=== PATIENT | female | born 1990 | race Caucasian/White ===

== ENCOUNTER 2023-11-28 14:47 | Emergency (ER) | payer OTHER ==
--- NOTE | 2023-11-28 14:54 | ED ---
General Adult HPI - General Source: patient, EMS, RN notes reviewed Mode of arrival: EMS Limitations: no limitations <Abe Velasquez - Last Filed: 11/28/23 14:51> <Renetta Boucher - Last Filed: 11/29/23 00:07> - General Stated complaint: Incoherent Time Seen by Provider: 11/28/23 14:51 - History of Present Illness Initial comments: Quick note 33-year-old female presents emergency department via EMS from [facility] for evaluation. Patient was checked and today in which [facility] staff felt that she was too lethargic and sent here for evaluation. She states that she did use some Xanax today she states she normally uses methamphetamines in which she states she injects. Patient does admit that she may have used recent crack. Patient denies any fevers or chills patient was awake alert and orientated with EMS (Abe Velasquez) 33-year-old female presents to the emergency department via EMS from [facility] for evaluation. Patient states that she checked into [facility] today for rehabilitation for IV drug use. Patient reports that they thought that she was too lethargic and needed further evaluation. She does admit to using methamphetamine this morning and she also took Xanax. Patient states that she feels like this caused her to be fatigued. She states she otherwise feels well. She denies any fever, chills, nausea, vomiting. She does note a bump on the back of her head that has been there for quite some time which is painful for her. She denies any drainage from this. She does not take any daily prescription medications. (Renetta Boucher) - Related Data Previous Rx's Medication Instructions Recorded Sulfamethox-Tmp 800-160Mg [Bactrim 1 each PO Q12HR #20 tab 11/28/23 Ds] Allergies Allergy/AdvReac Type Severity Reaction Status Date / Time No Known Allergies Allergy Verified 11/28/23 17:39 Review of Systems ROS Other: All systems not noted in ROS Statement are negative. <Abe Velasquez - Last Filed: 11/28/23 14:51> ROS Other: All systems not noted in ROS Statement are negative. <Renetta Boucher - Last Filed: 11/29/23 00:07> ROS Statement: Those systems with pertinent positive or pertinent negative responses have been documented in the HPI. General Exam <Abe Velasquez - Last Filed: 11/28/23 14:51> Limitations: no limitations General appearance: alert, in no apparent distress Head exam: Present: atraumatic, normocephalic, normal inspection Eye exam: Present: normal appearance, PERRL, EOMI. Absent: scleral icterus, conjunctival injection, periorbital swelling ENT exam: Present: normal exam, mucous membranes moist Neck exam: Present: normal inspection. Absent: tenderness, meningismus, lymphadenopathy Respiratory exam: Present: normal lung sounds bilaterally. Absent: respiratory distress, wheezes, rales, rhonchi, stridor Cardiovascular Exam: Present: regular rate, normal rhythm, normal heart sounds. Absent: systolic murmur, diastolic murmur, rubs, gallop, clicks Extremities exam: Present: normal inspection, full ROM, normal capillary refill. Absent: tenderness, pedal edema, joint swelling, calf tenderness Neurological exam: Present: alert, oriented X3, CN II-XII intact Psychiatric exam: Present: normal affect, normal mood Skin exam: Present: warm, dry, intact, normal color. Absent: rash <Renetta Boucher - Last Filed: 11/29/23 00:07> - General Exam Comments Initial Comments: Visual Physical Exam Vital signs reviewed General: Well-appearing, nontoxic, no acute distress. Head: Normocephalic, atraumatic Eyes: PERRLA, EOMI ENT: Airway patent Chest: Nonlabored breathing Skin: No visual rash, normal skin tone Neuro: Alert and oriented 3 Musculoskeletal: No gross abnormalities (Abe Velasquez) Course Vital Signs 11/28/23 11/28/23 11/28/23 15:29 18:57 19:50 Temperature 97.2 F L 98.2 F 98 F Pulse Rate 100 91 112 H Respiratory 16 18 18 Rate Blood Pressure 124/79 122/84 113/80 O2 Sat by Pulse 100 99 100 Oximetry Medical Decision Making <Abe Velasquez - Last Filed: 11/28/23 14:51> - Lab Data Result diagrams: 11/28/23 16:36 11/28/23 16:36 <Renetta Boucher - Last Filed: 11/29/23 00:07> - Medical Decision Making I completed the quick note portion of this chart signed Abe Velasquez PA-C (Abe Velasquez) Was pt. sent in by a medical professional or institution (, PA, DIGITAL MEDIA PRODUCER, urgent care, hospital, or fci...) When possible be specific @ -[facility] Did you speak to anyone other than the patient for history (EMS, parent, family, police, friend...)? What history was obtained from this source @ -No Did you review nursing and triage notes (agree or disagree)? Why? @ -I reviewed and agree with nursing and triage notes Were old charts reviewed (outside hosp., previous admission, EMS record, old EKG, old radiological studies, urgent care reports/EKG's, fci records)? Report findings @ -No old charts were reviewed Differential Diagnosis (chest pain, altered mental status, abdominal pain women, abdominal pain men, vaginal bleeding, weakness, fever, dyspnea, syncope, headache, dizziness, GI bleed, back pain, seizure, CVA, palpatations, mental he alth, musculoskeletal)? @ -Differential Altered Mental Status: Hypoglycemia, DKA, hypercapnia, ETOH, overdose, CO poisoning, trauma, myxedema coma, HTN encephalopathy, infection, encephalitis, psychosis, intercranial hemorrhage, hepatic encephalopathy, meningitis, CVA, this is not meant to be an all-inclusive list EKG interpreted by me (3pts min.). @ -None X-rays interpreted by me (1pt min.). @ -None done CT interpreted by me (1pt min.). @ -None done U/S interpreted by me (1pt. min.). @ -None done What testing was considered but not performed or refused? (CT, X-rays, U/S, labs)? Why? @ -None What meds were considered but not given or refused? Why? @ -None Did you discuss the management of the patient with other professionals (professionals i.e. , JERARDO, DIGITAL MEDIA PRODUCER, lab, RT, psych nurse, home health care social worker, metal rivet machine operator, teacher, investment officer, welfare case worker)? Give summary @ -No Was smoking cessation discussed for >3mins.? @ -No Was critical care preformed (if so, how long)? @ -No Were there social determinants of health that impacted care today? How? (Homelessness, low income, unemployed, alcoholism, drug addiction, transportation, low edu. Level, literacy, decrease access to med. care, detention, rehab)? @ -No Was there de-escalation of care discussed even if they declined (Discuss DNR or withdrawal of care, Hospice)? DNR status @ -No What co-morbidities impacted this encounter? (DM, HTN, Smoking, COPD, CAD, Cancer, CVA, ARF, Chemo, Hep., AIDS, mental health diagnosis, sleep apnea, mor bid obesity)? @ -None Was patient admitted / discharged? Hospital course, mention meds given and ro fco, prescriptions, significant lab abnormalities, going to OR and other pertinent info. @ -Discharged. Patient presents to the emergency department, sent in by [facility] for altered mental status. Patient is AOx4, acting appropriately in the room. She denies any significant complaints at this time besides a bump on the back of her head which has been there for 2 to 3 months. Laboratory studies were obtained. CBC unremarkable, CMP shows a potassium of 3.1, replaced with 40 mEq K-Dur, UA shows moderate leukocyte esterase, 13 WBCs, 8 squamous cells she is not having any urinary symptoms at this time. Negative urine hCG; serum alcohol negative; urine drug screen positive for amphetamines, methamphetamines, benzodiazepines, THC. Discussed these findings with patient. She is acting appropriately and I feel she can be discharged back to [facility]. Patient is understanding and agreeable with this. Patient stable at time of discharge. Case discussed with Dr. Morfin Undiagnosed new problem with uncertain prognosis? @ -No Drug Therapy requiring intensive monitoring for toxicity (Heparin, Nitro, Insulin, Cardizem)? @ -No Were any procedures done? @ -No Diagnosis/symptom? @ -IV drug abuse Acute, or Chronic, or Acute on Chronic? @ -chronic Uncomplicated (without systemic symptoms) or Complicated (systemic symptoms)? @ -uncomplicated Side effects of treatment? @ -No Exacerbation, Progression, or Severe Exacerbation? @ -No Poses a threat to life or bodily function? How? (Chest pain, USA, [place], pneumonia, PE, COPD, DKA, ARF, appy, cholecystitis, CVA, Diverticulitis, Homicidal, Suicidal, threat to staff... and all critical care pts) @ -No (Renetta Boucher) - Lab Data Lab Results 0411/28/23 11/28/23 Range/Units 16:36 16:36 17:40 WBC 6.7 (3.8-10.6) k/uL RBC 4.72 (3.80-5.40) m/uL Hgb 13.2 (11.4-16.0) gm/dL Hct 42.0 (34.0-46.0) % MCV 88.9 (80.0-100.0) fL MCH 27.9 (25.0-35.0) pg MCHC 31.4 (31.0-37.0) g/dL RDW 13.6 (11.5-15.5) % Plt Count 303 (150-450) k/uL MPV 7.6 Neutrophils % 63 % Lymphocytes % 29 % Monocytes % 5 % Eosinophils % 1 % Basophils % 1 % Neutrophils # 4.2 (1.3-7.7) k/uL Lymphocytes # 2.0 (1.0-4.8) k/uL Monocytes # 0.3 (0-1.0) k/uL Eosinophils # 0.0 (0-0.7) k/uL Basophils # 0.0 (0-0.2) k/uL Sodium 143 (137-145) mmol/L Potassium 3.1 L (3.5-5.1) mmol/L Chloride 104 (98-107) mmol/L Carbon Dioxide 31 H (22-30) mmol/L Anion Gap 8 mmol/L BUN 9 (7-17) mg/dL Creatinine 0.56 (0.52-1.04) mg/dL Est GFR (CKD-EPI)AfAm >90 (>60 ml/min/1.73 sqM) Est GFR (CKD-EPI)NonAf >90 (>60 ml/min/1.73 sqM) Glucose 86 (74-99) mg/dL Calcium 9.6 (8.4-10.2) mg/dL Total Bilirubin 0.5 (0.2-1.3) mg/dL AST 21 (14-36) U/L ALT 11 (4-34) U/L Alkaline Phosphatase 65 (38-126) U/L Total Protein 7.9 (6.3-8.2) g/dL Albumin 4.6 (3.5-5.0) g/dL Urine Color Light Yellow Urine Appearance Cloudy H (Clear) Urine pH 6.0 (5.0-8.0) Ur Specific [place] 1.011 (1.001-1.035) Urine Protein Negative (Negative) Urine Glucose (UA) Negative (Negative) Urine Ketones Negative (Negative) Urine Blood Negative (Negative) Urine Nitrite Negative (Negative) Urine Bilirubin Negative (Negative) Urine Urobilinogen <2.0 (<2.0) mg/dL Ur Leukocyte Esterase Moderate H (Negative) Urine RBC 1 (0-5) /hpf Urine WBC 13 H (0-5) /hpf Ur Squamous Epith Cells 8 H (0-4) /hpf Urine Mucus Few H (None) /hpf Urine HCG, Qual (Not Detectd) Urine Opiates Screen Not Detected (NotDetected) Ur Oxycodone Screen Not Detected (NotDetected) Urine Methadone Screen Not Detected (NotDetected) Ur Barbiturates Screen Not Detected (NotDetected) U Tricyclic Antidepress Not Detected (NotDetected) Ur Phencyclidine Scrn Not Detected (NotDetected) Ur Amphetamines Screen Detected H (NotDetected) U Methamphetamines Scrn Detected H (NotDetected) U Benzodiazepines Scrn Detected H (NotDetected) Urine Cocaine Screen Not Detected (NotDetected) U Marijuana (THC) Screen Detected H (NotDetected) Serum Alcohol <10 mg/dL 11/28/23 Range/Units 17:40 WBC (3.8-10.6) k/uL RBC (3.80-5.40) m/uL Hgb (11.4-16.0) gm/dL Hct (34.0-46.0) % MCV (80.0-100.0) fL MCH (25.0-35.0) pg MCHC (31.0-37.0) g/dL RDW (11.5-15.5) % Plt Count (150-450) k/uL MPV Neutrophils % % Lymphocytes % % Monocytes % % Eosinophils % % Basophils % % Neutrophils # (1.3-7.7) k/uL Lymphocytes # (1.0-4.8) k/uL Monocytes # (0-1.0) k/uL Eosinophils # (0-0.7) k/uL Basophils # (0-0.2) k/uL Sodium (137-145) mmol/L Potassium (3.5-5.1) mmol/L Chloride (98-107) mmol/L Carbon Dioxide (22-30) mmol/L Anion Gap mmol/L BUN (7-17) mg/dL Creatinine (0.52-1.04) mg/dL Est GFR (CKD-EPI)AfAm (>60 ml/min/1.73 sqM) Est GFR (CKD-EPI)NonAf (>60 ml/min/1.73 sqM) Glucose (74-99) mg/dL Calcium (8.4-10.2) mg/dL Total Bilirubin (0.2-1.3) mg/dL AST (14-36) U/L ALT (4-34) U/L Alkaline Phosphatase (38-126) U/L Total Protein (6.3-8.2) g/dL Albumin (3.5-5.0) g/dL Urine Color Urine Appearance (Clear) Urine pH (5.0-8.0) Ur Specific [place] (1.001-1.035) Urine Protein (Negative) Urine Glucose (UA) (Negative) Urine Ketones (Negative) Urine Blood (Negative) Urine Nitrite (Negative) Urine Bilirubin (Negative) Urine Urobilinogen (<2.0) mg/dL Ur Leukocyte Esterase (Negative) Urine RBC (0-5) /hpf Urine WBC (0-5) /hpf Ur Squamous Epith Cells (0-4) /hpf Urine Mucus (None) /hpf Urine HCG, Qual Not Detected (Not Detectd) Urine Opiates Screen (NotDetected) Ur Oxycodone Screen (NotDetected) Urine Methadone Screen (NotDetected) Ur Barbiturates Screen (NotDetected) U Tricyclic Antidepress (NotDetected) Ur Phencyclidine Scrn (NotDetected) Ur Amphetamines Screen (NotDetected) U Methamphetamines Scrn (NotDetected) U Benzodiazepines Scrn (NotDetected) Urine Cocaine Screen (NotDetected) U Marijuana (THC) Screen (NotDetected) Serum Alcohol mg/dL Disposition <Abe Velasquez - Last Filed: 11/28/23 14:51> Is patient prescribed a controlled substance at d/c from ED?: No <Renetta Boucher - Last Filed: 11/29/23 00:07> Clinical Impression: Hypokalemia, Drug abuse, daily use, Cellulitis Disposition: HOME SELF-CARE Condition: Stable Additional Instructions: Please return to [facility]. Return to the emergency department for new or worsening symptoms. Prescriptions: Sulfamethox-Tmp 800-160Mg [Bactrim Ds] 1 each PO Q12HR #20 tab Referrals: None,Stated [Primary Care Provider] - 1-2 days
[2023-11-28 16:45] LABS: Basophils % (A) 1 %; Eosinophils % (A) 1 %; HGB 13.2 gm/dL (11.4-16.0); Lymphocytes % (A) 29 %; MCH 27.9 pg (25.0-35.0); MCHC 31.4 g/dL (31.0-37.0); MCV 88.9 fL (80.0-100.0); Mean Platelet Volume 7.6; Monocytes # (A) 0.3 k/uL (0-1.0); Monocytes % (A) 5 %; Neutrophils # (A) 4.2 k/uL (1.3-7.7); Neutrophils % (A) 63 %; Platelet Count 303 k/uL (150-450); RBC 4.72 m/uL (3.80-5.40); RDW 13.6 % (11.5-15.5); WBC 6.7 k/uL (3.8-10.6)
[2023-11-28 16:57] LABS: ALT 11 U/L (4-34); AST 21 U/L (14-36); African American GFR (CKD) >90 (>60 ml/min/1.73 sqM); Albumin 4.6 g/dL (3.5-5.0); Alcohol <10 mg/dL; Alkaline Phosphatase 65 U/L (38-126); Anion Gap 8 mmol/L; Blood Urea Nitrogen 9 mg/dL (7-17); Calcium 9.6 mg/dL (8.4-10.2); Carbon Dioxide 31 mmol/L (22-30); Chloride 104 mmol/L (98-107); Glucose 86 mg/dL (74-99); Non-African American GFR(CKD) >90 (>60 ml/min/1.73 sqM); Potassium 3.1 mmol/L (3.5-5.1); Sodium 143 mmol/L (137-145); Total Bilirubin 0.5 mg/dL (0.2-1.3); Total Protein 7.9 g/dL (6.3-8.2)
[2023-11-28] MEDS: POTASSIUM CHLORIDE ER 20 MEQ TAB.ER PO STA (18:27)
[2023-11-28 18:41] LABS: Appearance,Urine Cloudy (Clear); Bilirubin,Urine Negative (Negative); Blood,Urine Negative (Negative); Color,Urine Light Yellow; Glucose,Urine (UA) Negative (Negative); Ketones,Urine Negative (Negative); Leukocyte Esterase,Urine Moderate (Negative); Mucus,Urine Few /hpf; Nitrite,Urine Negative (Negative); Protein,Urine Negative (Negative); RBC,Urine 1 /hpf (0-5); Specific Gravity,Urine 1.011 (1.001-1.035); Squamous Epithelial Cell,Urine 8 /hpf (0-4); Urobilinogen,Urine <2.0 mg/dL (<2.0); WBC,Urine 13 /hpf (0-5)
[2023-11-28 18:49] LABS: Amphetamine Screen,Urine Detected (NotDetected); Barbiturate Screen,Urine Not Detected (NotDetected); Benzodiazepines Screen,Urine Detected (NotDetected); Cocaine Screen,Urine Not Detected (NotDetected); Methadone Screen, Urine Not Detected (NotDetected); Opiate Screen,Urine Not Detected (NotDetected); Oxycodone Screen, Urine Not Detected (NotDetected); Phencyclidine Screen,Urine Not Detected (NotDetected); Tricyclic Antidepressant,Urine Not Detected (NotDetected); Urn Cannabinoid Scrn Detected (NotDetected)
[2023-11-28 19:13] VITALS: RESP 18
[2023-11-28 20:25] VITALS: BP 113/80; PULSE 112; TEMP 98
== END 2023-11-28 20:01 | disposition home or self-care (01) ==
LOC: EC 14:47
DX: E87.6 Hypokalemia (principal); F19.10 Other psychoactive substance abuse, uncomplicated; L03.811 Cellulitis of head [any part, except face]
CPT/HCPCS: 36415; 80053; 85025; 81001; 81025; 80306; 99283; G0480; 80320

== ENCOUNTER 2023-11-29 11:40 | Emergency (ER) | payer OTHER ==
--- NOTE | 2023-11-29 12:18 | XR ---
EXAMINATION TYPE: XR foot complete LT DATE OF EXAM: 11/29/2023 COMPARISON: None HISTORY: Twisted, pain TECHNIQUE: 3 views left foot FINDINGS: No acute fractures or dislocations evident. Joint spaces are preserved. Soft tissues appear normal. Follow up exams can be performed 7-10 days from acute trauma for continued pain. IMPRESSION: 1. No acute osseous abnormality left foot
[2023-11-29] MEDS: KETOROLAC 15 MG/ML 1 ML VIAL IM STA (12:36)
--- NOTE | 2023-11-29 12:41 | ED ---
Lower Extremity Injury HPI - General Chief Complaint: Extremity Injury, Lower Stated Complaint: L Foot Injury Time Seen by Provider: 11/29/23 11:51 Source: patient, RN notes reviewed Mode of arrival: wheelchair Limitations: no limitations - History of Present Illness Initial Comments: 33-year-old female presents emergency department complaint left foot injury. Patient states she rolled her foot over at [facility]. She has pain, swelling swelling to her foot no paresthesias. - Related Data Previous Rx's Medication Instructions Recorded Sulfamethox-Tmp 800-160Mg [Bactrim 1 each PO Q12HR #20 tab 11/28/23 Ds] Allergies Allergy/AdvReac Type Severity Reaction Status Date / Time No Known Allergies Allergy Verified 11/28/23 17:39 Review of Systems ROS Statement: Those systems with pertinent positive or pertinent negative responses have been documented in the HPI. ROS Other: All systems not noted in ROS Statement are negative. Past Medical History Past Medical History: No Reported History History of Any Multi-Drug Resistant Organisms: None Reported Past Surgical History: Cholecystectomy, Tubal Ligation Additional Past Surgical History / Comment(s): eye surgery Past Psychological History: No Psychological Hx Reported Smoking Status: Current every day smoker Past Alcohol Use History: None Reported Past Drug Use History: Methamphetamine General Exam Limitations: no limitations General appearance: alert, in no apparent distress Head exam: Present: atraumatic, normocephalic, normal inspection Respiratory exam: Present: normal lung sounds bilaterally. Absent: respiratory distress, wheezes, rales, rhonchi, stridor Cardiovascular Exam: Present: regular rate, normal rhythm, normal heart sounds. Absent: systolic murmur, diastolic murmur, rubs, gallop, clicks Extremities exam: Present: other (Left foot ecchymosis swelling the lateral portion) Neurological exam: Present: alert Course Vital Signs 11/29/23 11/29/23 12:31 13:12 Temperature 98.2 F 98 F Pulse Rate 97 90 Respiratory 12 18 Rate Blood Pressure 102/71 104/77 O2 Sat by Pulse 100 99 Oximetry Medical Decision Making - Medical Decision Making Was pt. sent in by a medical professional or institution (, PA, YOUTH SERVICES LIBRARIAN, urgent care, hospital, or fci...) When possible be specific @ -[facility] Did you speak to anyone other than the patient for history (EMS, parent, family, police, friend...)? What history was obtained from this source @ -No Did you review nursing and triage notes (agree or disagree)? Why? @ -I reviewed and agree with nursing and triage notes Were old charts reviewed (outside hosp., previous admission, EMS record, old EKG, old radiological studies, urgent care reports/EKG's, fci records)? Report findings @ -No old charts were reviewed Differential Diagnosis (chest pain, altered mental status, abdominal pain women, abdominal pain men, vaginal bleeding, weakness, fever, dyspnea, syncope, headache, dizziness, GI bleed, back pain, seizure, CVA, palpatations, mental health, musculoskeletal)? @ -Foot fracture, foot sprain EKG interpreted by me (3pts min.). @ -None X-rays interpreted by me (1pt min.). @ -X-ray left foot no acute fracture or dislocation CT interpreted by me (1pt min.). @ -None done U/S interpreted by me (1pt. min.). @ -None done What testing was considered but not performed or refused? (CT, X-rays, U/S, labs)? Why? @ -None What meds were considered but not given or refused? Why? @ -None Did you discuss the management of the patient with other professionals (professionals i.e. , PA, YOUTH SERVICES LIBRARIAN, lab, RT, psych nurse, social media marketer, coil winder repair, teacher, air force senior officer, family independence case manager)? Give summary @ -No Was smoking cessation discussed for >3mins.? @ -No Was critical care preformed (if so, how long)? @ -No Were there social determinants of health that impacted care today? How? (Homelessness, low income, unemployed, alcoholism, drug addiction, transportation, low edu. Level, literacy, decrease access to med. care, residential, rehab)? @ -No Was there de-escalation of care discussed even if they declined (Discuss DNR or withdrawal of care, Hospice)? DNR status @ -No What co-morbidities impacted this encounter? (DM, HTN, Smoking, COPD, CAD, Cancer, CVA, ARF, Chemo, Hep., AIDS, mental health diagnosis, sleep apnea, morbid obesity)? @ -None Was patient admitted / discharged? Hospital course, mention meds given and route, prescriptions, significant lab abnormalities, going to OR and other pertinent info. @ -Discharge patient has a left foot sprain no acute fracture on x-ray noted Undiagnosed new problem with uncertain prognosis? @ -No Drug Therapy requiring intensive monitoring for toxicity (Heparin, Nitro, Insulin, Cardizem)? @ -No Were any procedures done? @ -No Diagnosis/symptom? @ -Left foot sprain Acute, or Chronic, or Acute on Chronic? @ -Acute Uncomplicated (without systemic symptoms) or Complicated (systemic symptoms)? @ -Uncomplicated Side effects of treatment? @ -No Exacerbation, Progression, or Severe Exacerbation? @ -No Poses a threat to life or bodily function? How? (Chest pain, [place], [place], pneumonia, PE, COPD, DKA, ARF, appy, cholecystitis, CVA, Diverticulitis, Homicidal, Suicidal, threat to staff... and all critical care pts) @ -No Disposition Clinical Impression: Sprain of left foot Disposition: HOME SELF-CARE Condition: Stable Instructions (If sedation given, give patient instructions): Foot Sprain (ED) Additional Instructions: Please return to the Emergency Department if symptoms worsen or any other concerns. Is patient prescribed a controlled substance at d/c from ED?: No Referrals: None,Stated [Primary Care Provider] - 1-2 days Time of Disposition: 12:40
[2023-11-29 13:26] VITALS: BP 104/77; PULSE 90; RESP 18; TEMP 98
== END 2023-11-29 13:31 | disposition home or self-care (01) ==
LOC: EC 11:40
DX: S93.602A Unspecified sprain of left foot, initial encounter (principal); F17.200 Nicotine dependence, unspecified, uncomplicated; X50.1XXA Overexertion from prolonged static or awkward postures, initial encounter
CPT/HCPCS: 73630; 99283; 96372; J1885